=== PATIENT | female | born 1970 | race Caucasian/White ===

== ENCOUNTER 2020-11-03 12:19 | Emergency (ER) | payer OTHER ==
[2020-11-03 14:09] LABS: BASOPHIL 0.3 % (0-2); EOSINOPHIL 0 % (0-5); HCT 40.2 % (37.0-47.0); LYMPHOCYTE 21.7 % (15-48); MCHC 32.3 g/dL (32.0-36.0); MCV 89.7 fL (78.0-100.0); MONOCYTE 5.3 % (0-12); MPV 11.3 fL (6.0-9.5); NEUTROPHIL 72.4 % (41-80); NRBC 0; PLT 194 K/uL (150-400); RBC 4.48 M/uL (4.20-5.40); RDW 13.2 % (11.5-14.0); WBC 3.6 K/uL (4.0-10.5)
[2020-11-03 14:10] LABS: BILIRUBIN NEGATIVE (NEGATIVE); BLOOD NEGATIVE Ery/uL (NEGATIVE); CLARITY CLEAR (CLEAR); COLOR YELLOW (YELLOW); GLUCOSE (U) NORMAL (NORMAL); LEUKOCYTES NEGATIVE Leu/uL (NEGATIVE); NITRITE NEGATIVE (NEGATIVE); PROTEIN 1+ mg/dL (NEGATIVE); SPECIFIC GRAVITY 1.015 (1.001-1.030); UROBILINOGEN 0.2 mg/dL (0.2-1.0); pH 7.5 (5.0-9.0)
[2020-11-03 14:16] LABS: SQUAMOUS EPITHELIAL CELLS 20-50
[2020-11-03 14:34] LABS: BUN/CREAT RATIO (CALC) 14.5 RATIO; CREATININE 0.62 mg/dL (0.51-0.95); POTASSIUM 2.9 mmol/L (3.5-5.1)
[2020-11-03 14:44] LABS: INFLUENZA A NAA NEGATIVE (NEGATIVE)
[2020-11-03 14:49] LABS: CORONAVIRUS 2019 SARS-COV-2 POSITIVE (NEGATIVE)
[2020-11-03] MEDS ORDERED: AZITHROMYCIN250 MG PO (17:12)
[2020-11-03] MEDS ORDERED: VENTOLIN HFA IN18 GM INH (17:12)
[2020-11-03] MEDS ORDERED: K-DUR20 MEQ PO (17:12)
[2020-11-03] MEDS ORDERED: PREDNISONE 20MG20 MG PO (17:12)
== END 2020-11-03 18:00 | disposition home or self-care (01) ==
LOC: FER 12:19
PROVIDERS: Nurse Practitioner Family
DX: U07.1 COVID-19 (principal); J12.82 Pneumonia due to coronavirus disease 2019; R09.02 Hypoxemia; E87.6 Hypokalemia; I10 Essential (primary) hypertension
CPT/HCPCS: 36415; 36600; 71045; 80048; 81001; 82803; 85025; 94640; 94664; J1100; J7030; M0243; Q0244; U0002